=== PATIENT | female | born 1955 | race Caucasian/White ===

== ENCOUNTER → 2020-04-13 | Outpatient (CLI) | payer BC | LOC: HEART 5 14:20 | DX: R06.00 Dyspnea, unspecified (principal); R94.2 Abnormal results of pulmonary function studies | CPT/HCPCS: 94010; 94729 ==

== ENCOUNTER → 2020-11-15 | Outpatient (CLI) | payer BC | LOC: KOH-I 10:44 | DX: E04.2 Nontoxic multinodular goiter (principal) | CPT/HCPCS: 76536 ==

== ENCOUNTER → 2020-12-23 | Outpatient (CLI) | payer BC | LOC: MAMO 09:20 | DX: Z12.31 Encounter for screening mammogram for malignant neoplasm of breast (principal) | CPT/HCPCS: 77063; 77067 ==

== ENCOUNTER → 2021-04-10 | Outpatient (CLI) | payer BC | LOC: KOH-I 09:20 | DX: M25.571 Pain in right ankle and joints of right foot (principal); M19.071 Primary osteoarthritis, right ankle and foot | CPT/HCPCS: 73610; 73630 ==

== ENCOUNTER → 2021-04-18 | Outpatient (CLI) | payer BC | LOC: KOH-I 08:00 | DX: M79.671 Pain in right foot (principal); M79.661 Pain in right lower leg; M65.9 Synovitis and tenosynovitis, unspecified; R60.0 Localized edema; S96.811A Strain of other specified muscles and tendons at ankle and foot level, right foot, initial encounter | CPT/HCPCS: 73721 ==